=== PATIENT | female | born 1975 | race Caucasian/White ===

== ENCOUNTER → 2016-09-17 | Outpatient (CLI) | payer OTHER | END | disposition home or self-care (01) | LOC: THER.S 13:19 | DX: E83.42 Hypomagnesemia (principal) ==

== ENCOUNTER → 2016-09-17 | Outpatient (CLI) | payer OTHER | END | disposition home or self-care (01) | LOC: PTH.S 10:36 | DX: C18.2 Malignant neoplasm of ascending colon (principal) ==